=== PATIENT | female | born 1990 | race African-American/Black ===

== ENCOUNTER 2017-01-27 20:05 | Emergency (ER) | payer OTHER ==
[~2017-01-27] VITALS: Ht 165.1 cm; Wt 63.6 kg
[2017-01-27] MEDS ORDERED: CITA20TA4 PO (20:42)
[2017-01-27] MEDS ORDERED: LAMO10TA PO (20:42)
[2017-01-27] MEDS ORDERED: LIDOCAINE W/EPINEPHRINE 1% 20ML VIAL SC ONE (21:15)
[2017-01-27 22:13] VITALS: BP 107/69
--- NOTE | 2017-01-28 00:45 | REP ---
Clinical: Status post reduction. Technique: Open and closed mouth views of the right temporomandibular joint. Findings: There is no evidence for fracture. Open and closed mouth views demonstrate the mandibular condyle to be stable within the temporomandibular joint. Impression: Satisfactory reduction to the right temporomandibular joint. No evidence for motion on open-mouth view. Signed by Joseluis Crowell MD 01/28/2017 12:37 A
--- NOTE | 2017-01-28 01:15 | REP ---
Clinical: Dislocation. Technique: AP and opened/closed mouth views of the right and left temporomandibular joints. Findings: There is no evidence for acute fracture. Left temporomandibular joint demonstrates appropriate motion. Right temporomandibular joint appears anteriorly subluxed and fixed. Impression: Clinical correlation is recommended to exclude right TMJ dislocation. Signed by Joseluis Crowell MD 01/28/2017 01:06 A
== END 2017-01-27 22:24 | disposition home or self-care (01) ==
LOC: M ED 20:05
DX: S03.01XA Dislocation of jaw, right side, initial encounter (principal); X58.XXXA Exposure to other specified factors, initial encounter; Y92.9 Unspecified place or not applicable; Y93.9 Activity, unspecified; Y99.9 Unspecified external cause status; F32.9 Major depressive disorder, single episode, unspecified; Z79.899 Other long term (current) drug therapy

== ENCOUNTER 2017-11-15 13:39 | Emergency (ER) | payer OTHER | END 2017-11-15 15:49 | disposition left against medical advice (07) | LOC: M ED 13:39 | DX: Z53.29 Procedure and treatment not carried out because of patient's decision for other reasons (principal) ==

== ENCOUNTER → 2017-11-23 | Outpatient (CLI) | payer OTHER | LOC: M RAD 12:56 | DX: N64.4 Mastodynia (principal) | CPT/HCPCS: 76642 ==